=== PATIENT | male | born 1980 | race Native Hawaiian/Other Pacific Islander ===

== ENCOUNTER 2018-10-27 17:50 | Emergency (ER) | payer BC ==
[~2018-10-27] VITALS: Ht 182.9 cm; Wt 179.2 kg
[2018-10-27 18:59] VITALS: BP 136/78; TEMP 97.4
== END 2018-10-27 19:00 | disposition home or self-care (01) ==
LOC: ED 17:50
DX: M65.842 Other synovitis and tenosynovitis, left hand (principal); L73.9 Follicular disorder, unspecified
CPT/HCPCS: 96372; 99282; J2930

== ENCOUNTER 2019-08-09 10:23 | Emergency (ER) | payer BC ==
[~2019-08-09] VITALS: Ht 182.9 cm; Wt 181.4 kg
[2019-08-09 10:29] VITALS: TEMP 99.5
[2019-08-09 11:13] LABS: PLATELET COUNT 176 K/uL (142-355)
[2019-08-09 11:42] LABS: POTASSIUM 3.1 mmol/L (3.6-5.2)
[2019-08-09 13:42] VITALS: BP 137/78
== END 2019-08-09 13:42 | disposition home or self-care (01) ==
LOC: ED 10:23
PROVIDERS: Hospitalist
DX: J40 Bronchitis, not specified as acute or chronic (principal); J06.9 Acute upper respiratory infection, unspecified; R50.9 Fever, unspecified; E87.6 Hypokalemia
CPT/HCPCS: 36415; 80053; 81000; 83605; 85027; 87040; 87502; 87651; 96360; 96365; 99284; J0696

== ENCOUNTER 2021-01-20 09:56 | Emergency (ER) | payer BC ==
[~2021-01-20] VITALS: Ht 182.9 cm; Wt 174.6 kg
[2021-01-20 11:38] VITALS: BP 152/93; TEMP 98
== END 2021-01-20 11:40 | disposition home or self-care (01) ==
LOC: ED 09:56
DX: J06.9 Acute upper respiratory infection, unspecified (principal); Z20.822 Contact with and (suspected) exposure to COVID-19
CPT/HCPCS: 87635; 99283; J1100; U0003

== ENCOUNTER 2021-01-30 10:20 | Outpatient (CLI) | payer BC | END 2021-01-30 21:14 | disposition home or self-care (01) | LOC: RAD 10:20 | PROVIDERS: ATTEND Registered Nurse | DX: R06.02 Shortness of breath (principal) ==

== ENCOUNTER 2021-02-02 08:56 | Emergency (ER) | payer BC ==
[~2021-02-02] VITALS: Ht 182.9 cm; Wt 174.6 kg
[2021-02-02 09:07] VITALS: BP 172/112; TEMP 97.8
[2021-02-02 09:43] LABS: PLATELET COUNT 256 K/uL (142-355)
[2021-02-02 09:48] LABS: POTASSIUM 3.6 mmol/L (3.6-5.2); SODIUM 140 mmol/L (136-145)
== END 2021-02-02 10:40 | disposition home or self-care (01) ==
LOC: ED 08:56
PROVIDERS: Emergency Medicine
DX: R06.09 Other forms of dyspnea (principal); Z20.822 Contact with and (suspected) exposure to COVID-19; E66.01 Morbid (severe) obesity due to excess calories
CPT/HCPCS: 80048; 84484; 85027; 85379; 87635; 93005; 96372; 99283; J1100; U0003

== ENCOUNTER 2021-05-30 13:55 | Emergency (ER) | payer BC ==
[~2021-05-30] VITALS: Ht 182.9 cm; Wt 181.4 kg
[2021-05-30 14:04] VITALS: TEMP 97.8
[2021-05-30 14:12] LABS: PLATELET COUNT 232 K/uL (142-355)
[2021-05-30 14:43] LABS: POTASSIUM 3.7 mmol/L (3.6-5.2)
[2021-05-30 15:05] VITALS: BP 158/90
== END 2021-05-30 15:08 | disposition home or self-care (01) ==
LOC: ED 13:55
PROVIDERS: Hospitalist
DX: T78.1XXA Other adverse food reactions, not elsewhere classified, initial encounter (principal); L50.0 Allergic urticaria; X58.XXXA Exposure to other specified factors, initial encounter; Y92.89 Other specified places as the place of occurrence of the external cause
CPT/HCPCS: 80053; 82550; 83880; 84484; 85027; 85610; 85730; 93005; 94664; 96374; 96375; 99284; J1200; J2930

== ENCOUNTER 2022-01-06 15:37 | Emergency (ER) | payer OTHER ==
[~2022-01-06] VITALS: Ht 182.9 cm; Wt 173.7 kg
[2022-01-06 15:45] VITALS: TEMP 98.4
[2022-01-06 16:50] VITALS: BP 144/94
== END 2022-01-06 16:50 | disposition home or self-care (01) ==
LOC: ED 15:37
DX: S39.012A Strain of muscle, fascia and tendon of lower back, initial encounter (principal); X50.1XXA Overexertion from prolonged static or awkward postures, initial encounter; Y93.39 Activity, other involving climbing, rappelling and jumping off; Y92.89 Other specified places as the place of occurrence of the external cause
CPT/HCPCS: 96372; 99283; J1885; J2360